=== PATIENT | female | born 1955 | race Caucasian/White ===

== ENCOUNTER 2018-05-01 20:30 | Outpatient (CLI) | payer OTHER | END 2018-05-01 20:31 | disposition home or self-care (01) | LOC: SLEEPLAB 20:30 | PROVIDERS: ATTEND Family Medicine | DX: G47.00 Insomnia, unspecified (principal); R35.1 Nocturia; G47.61 Periodic limb movement disorder; R41.89 Other symptoms and signs involving cognitive functions and awareness; Z68.1 Body mass index [BMI] 19.9 or less, adult | CPT/HCPCS: 95810 ==

== ENCOUNTER 2021-04-04 15:16 | Outpatient (CLI) | payer OTHER | END 2021-04-04 15:17 | disposition home or self-care (01) | LOC: BICMRI 15:16 | PROVIDERS: ATTEND Family Medicine | DX: M47.26 Other spondylosis with radiculopathy, lumbar region (principal); M41.9 Scoliosis, unspecified | CPT/HCPCS: 72148 ==

== ENCOUNTER 2021-04-10 13:16 | Outpatient (CLI) | payer OTHER | END 2021-04-10 13:17 | disposition home or self-care (01) | LOC: BICULT 13:16 | PROVIDERS: ATTEND Family Medicine | DX: M54.16 Radiculopathy, lumbar region (principal); R22.2 Localized swelling, mass and lump, trunk | CPT/HCPCS: 76999 ==